=== PATIENT | male | born 1980 | race Caucasian/White ===

== ENCOUNTER 2018-02-12 14:56 | Emergency (ER) | payer SELFPAY ==
[~2018-02-12] VITALS: Ht 172.7 cm; Wt 90.9 kg
[2018-02-12 14:56] VITALS: Ht 172.7 cm; Wt 90.9 kg
[2018-02-12] MEDS ORDERED: PRINIVIL20 MG PO (15:04)
[2018-02-12 15:42] LABS: BASOPHILS 0.5 % (0-2); EOSINOPHILS 1.9 % (0-7); HEMATOCRIT 50.7 % (42.0-54.0); HEMOGLOBIN 17.3 g/dL (13.5-17.5); IMMATURE GRANULOCYTES 0.2 % (0-5); LYMPHOCYTES 34.4 % (15-50); MCHC 34.1 g/dL (31.0-37.0); MCV 90.9 fL (80.0-100.0); MEAN PLATELET VOLUME 9.8 fL (7.4-10.4); MONOCYTES 9.3 % (2-11); NEUTROPHILS 53.7 % (40-80); PLATELET COUNT 314 10x3/uL (130-400); RBC 5.58 10x6/uL (4.20-6.10); RDW 13.4 % (11.5-14.5)
[2018-02-12 15:43] LABS: APPEARANCE CLEAR (CLEAR); BILIRUBIN NEGATIVE (NEGATIVE); COLOR YELLOW (YELLOW); GLUCOSE NEGATIVE (NEGATIVE); KETONE NEGATIVE (NEGATIVE); NITRITE NEGATIVE (NEGATIVE); PROTEIN NEGATIVE (NEGATIVE); SPECIFIC GRAVITY 1.005 (1.005-1.020); UROBILINOGEN NORMAL (NORMAL)
[2018-02-12 15:44] LABS: WHITE CELLS - URINE OCC /hpf (0-5)
[2018-02-12 15:53] LABS: ALBUMIN 3.8 g/dL (3.4-5.0); ALKALINE PHOSPHATASE 51 U/L (46-116); ALT (SGPT) 46 U/L (10-68); BILIRUBIN - TOTAL 0.43 mg/dL (0.2-1.3); CALC OSMOLALITY 278 mosm/kg (275-300); CALCIUM 9.5 mg/dL (8.5-10.1); CARBON DIOXIDE 27.8 mmol/L (21.0-32.0); CHLORIDE - SERUM 105 mmol/L (98-107); CREATININE - SERUM 0.9 mg/dL (0.6-1.3); GLUCOSE 94 mg/dL (74-106); PROTEIN - SERUM 7.4 g/dL (6.4-8.2); SODIUM 141 mmol/L (136-145); UREA NITROGEN 6 mg/dL (7-18); eGFR NON AFRICAN AMERICAN > 90 mL/min (90-120)
[2018-02-12 15:56] LABS: TROPONIN-I 0.034 ng/mL (0.000-0.060)
[2018-02-12 16:05] LABS: CKMB 1.4 U/L (0.0-3.6); CREATINE KINASE 119 UL (21-232); TROPONIN-I 0.034 ng/mL (0.000-0.060)
[2018-02-12] MEDS ORDERED: BACLOFEN20 M1 PO (20:08)
[2018-02-12 21:04] VITALS: BP 119/74
== END 2018-02-12 21:05 ==
LOC: D.ER 14:56
PROVIDERS: Emergency Medicine
DX: M25.512 Pain in left shoulder (principal); W06.XXXA Fall from bed, initial encounter; Y93.89 Activity, other specified; Y92.143 Cell of prison as the place of occurrence of the external cause

== ENCOUNTER 2019-04-28 11:12 | Observation (INO) | payer MEDICAID ==
[~2019-04-28] VITALS: Ht 172.7 cm; Wt 88.6 kg
[~2019-04-28 11:12] MED LIST: BACLOFEN20 M1 PO; PRINIVIL20 MG PO
[2019-04-28 11:47] LABS: BASOPHILS 0.5 % (0-2); EOSINOPHILS 0.8 % (0-7); HEMATOCRIT 43.8 % (42.0-54.0); HEMOGLOBIN 15.8 g/dL (13.5-17.5); IMMATURE GRANULOCYTES 0.4 % (0-5); LYMPHOCYTES 19.6 % (15-50); MCH 32.2 pg (26.0-34.0); MCHC 36.1 g/dL (31.0-37.0); MCV 89.2 fL (80.0-100.0); MEAN PLATELET VOLUME 9.7 fL (7.4-10.4); MONOCYTES 9.4 % (2-11); NEUTROPHILS 69.3 % (40-80); RBC 4.91 10x6/uL (4.20-6.10); RDW 13.3 % (11.5-14.5); WBC 8.5 10x3/uL (4.8-10.8)
[2019-04-28 11:54] LABS: PLATELET COUNT 237 10x3/uL (130-400)
[2019-04-28 11:57] LABS: APTT 30.8 SECONDS (22.8-39.4); INR 1.17 (0.85-1.17); PROTIME 14.4 SECONDS (11.6-15.0)
[2019-04-28 12:01] LABS: ALBUMIN 3.1 g/dL (3.4-5.0); ALKALINE PHOSPHATASE 51 U/L (46-116); ALT (SGPT) 161 U/L (10-68); BILIRUBIN - TOTAL 0.41 mg/dL (0.2-1.3); CALC OSMOLALITY 272 mosm/kg (275-300); CALCIUM 7.9 mg/dL (8.5-10.1); CARBON DIOXIDE 25.8 mmol/L (21.0-32.0); CHLORIDE - SERUM 106 mmol/L (98-107); GLUCOSE 90 mg/dL (74-106); PROTEIN - SERUM 6.5 g/dL (6.4-8.2); SODIUM 137 mmol/L (136-145); UREA NITROGEN 11 mg/dL (7-18); eGFR NON AFRICAN AMERICAN 88 mL/min (90-120)
[2019-04-28 12:12] LABS: CKMB 2.6 U/L (0.0-3.6); CREATINE KINASE 246 UL (21-232); MAGNESIUM - SERUM 1.8 mg/dL (1.8-2.4); TROPONIN-I 0.027 ng/mL (0.000-0.060)
[2019-04-28 12:40] LABS: CKMB 2.1 U/L (0.0-3.6); CREATINE KINASE 249 UL (21-232); TROPONIN-I 0.036 ng/mL (0.000-0.060)
--- NOTE | 2019-04-28 13:01 | NUR ---
REPOTR TO HERNANDEZ VASQUES. PATIENT TO BE ADMITTED TO ROOM 2119. WILL CALL WHEN READY FOR PATIENT
--- NOTE | 2019-04-28 14:15 | NUR ---
RECEIVED PT VIA W/C FROM ER AAOX4 RESP UNLABORED SKIN W/D COLOR WNL DENIES ANY CHEST PAIN AT THIS TIME TELEMETRY SINUS RATE 60 WILL CONTINUE TO MONITOR
--- NOTE | 2019-04-28 14:31 | HP ---
PATIENT: JUAN AVILES MEDICAL RECORD: [id number] ACCOUNT: [id number] LOCATION:[address]19 : 78 ADMISSION DATE: 04/28/19 PCP: No PCP HISTORY AND PHYSICAL EXAMINATION DIAGNOSES: 1. Angina. 2. Coronary artery disease. 3. Previous myocardial infarction. 4. Hypertension. 5. Hyperlipidemia and smoking history. 6. Family history of coronary artery disease. HISTORY OF PRESENT ILLNESS: Mr. Aviles presents with chest pain. He is young at 39 years old, but he does have a cardiac history. He was told at [facility] last February that he had a myocardial infarction. He did not undergo cardiac catheterization or stenting at that time. He was treated with lisinopril. He as well has hyperlipidemia. He was previously on a cholesterol medication, he is no longer on this. He does have a smoking history, continues to smoke and a family history of coronary artery disease. He has been having episodes of chest pain and chest pressure. His EKG is with no acute ST-T abnormalities. OVERALL IMPRESSION: Chest discomfort, questionable myocardial infarction in the past with no intervention. We will risk stratify with stress testing Cardiolite imaging. Further care depends upon the findings of the stress test. TRANSINT:[id number] Voice Confirmation ID: [id number] DOCUMENT ID: [id number] GENARO SCHULZ MD at 1431 CC: [id number] DICTATION DATE: 04/28/19 1154 LION TAMER: 04/28/19 1200 ADM IN [id number] [place] [address]
[2019-04-28 15:56] VITALS: BP 125/72; Ht 172.7 cm; Wt 88.6 kg
--- NOTE | 2019-04-28 18:33 | NUR ---
REVIEWED DISCHARGE INSTRUCTIONS WITH PT STATES UNDERSTANDING COPY GIVEN DCD SALINE LOCK TO LT HAND WITH IV CATHETER INTACT SITE FREE OF REDNESS OR EDEMA PT DISCHARGED HOME IN STABLE CONDITION LEFT VIA W/C WITH ALL PERSONAL BELONGINGS
--- NOTE | 2019-04-29 07:28 | MORECARE ---
CASE MANAGEMENT DISCHARGE SUMMARY PATIENT: JUAN PIERCE UNIT: [id number] ADM DATE: 04/28/19 AGE: 39 : 78 SEX: M ROOM/BED: D.2119 AUTHOR: ROSALVA GARG PHYSICIAN: REFERRING PHYSICIAN: GENARO SCHULZ MD DATE OF SERVICE: 04/29/19 Discharge Plan Patient Name: JUAN PIERCE [facility] [facility] 1980 Planned Disposition: Home Anticipated Discharge Date: 04/28/19 Discharge Date: 04/28/2019 Expected LOS: 1 Initial Reviewer: [email or web address] Initial Review Date: 04/29/2019 Generated: 04/29/19 8:28 am Patient Name: JUAN PIERCE Page [id number] at 0728 All edits/amendments must be made on the electronic document DICTATION DATE: 04/29/19726 REGIONAL FACILITIES MANAGER: SAMEER 04/29/19726 RPT#: [id number] DC DATE:04/28/19 STATUS: DIS IN [facility] [address] [place] [address] END OF REPORT
--- NOTE | 2019-04-29 15:34 | DS ---
PATIENT:JUAN AVILES :78 MEDICAL RECORD: [id number] DISCHARGE SUMMARY ADMISSION DATE: 04/28/19 DISCHARGE DATE: 04/28/19 DISCHARGE DIAGNOSES: 1. Chest pain. 2. Normal nuclear stress test. HOSPITAL COURSE: Mr. Aviles presents with chest pain. He has been told in the past that he had a heart attack; however, nuclear stress testing was totally normal. No perfusion defects. No previous heart attacks. No ongoing ischemic burden. Chest pain is noncardiac in etiology. No further cardiac workup or Cardiology followup is needed. TRANSINT:[id number] Voice Confirmation ID: [id number] DOCUMENT ID: [id number] GENARO SCHULZ MD at 1534 CC: [id number] DICTATION DATE: 04/28/19 1640 RN DERMATOLOGY: 04/29/19 0040 DIS IN 04/28/19 [id number] [place] [address]
--- NOTE | 2019-04-29 15:34 | ST ---
PATIENT:JUAN PIERCE MEDICAL RECORD: [id number] SEX: M LOCATION:D. D.211 ORDER #: ADMISSION DATE: 04/28/19 AGE OF PATIENT: 39 REFERRING PHYSICIAN: INTERPRETING PHYSICIAN: GENARO SCHULZ MD DATE OF SERVICE: 04/28/2019 Nuclear Stress Test INDICATIONS: Chest pain. He was exercised on standard Lexiscan protocol of 28 mCi of sestamibi injected at peak stress, 8 mCi used previously for rest images. FINDINGS: Gated SPECT reveals preserved ejection fraction at 54% with good wall motion and thickening and brightening throughout all segments. SPECT Imaging: Cardiolite was used as myocardial fusion agent. There is homogeneous uptake throughout all segments at rest and stress with no evidence of inducible ischemia or previous infarction. OVERALL IMPRESSION: 1. This is a normal nuclear stress test with no evidence of inducible ischemia or previous infarction. 2. Gated SPECT reveals a preserved ejection fraction at 54%. In this patient with ongoing symptomatology, the current scan does not suggest the presence of hemodynamically significant coronary artery disease. Evaluate noncardiac etiology of chest pain. TRANSINT:[id number] Voice Confirmation ID: [id number] DOCUMENT ID: [id number] GENARO SCHULZ MD at 1534 CC: [id number] DICTATION DATE: 04/28/19 1637 MARKETING AUTOMATION SPECIALIST: 04/29/19 0050 DIS IN 04/28/19 [id number] [place] [address]
== END 2019-04-28 18:33 | disposition home or self-care (01) ==
LOC: D.ER 11:12 → D.M2 12:29 → OBSVTIME 12:33 → D.M2 18:33
PROVIDERS: Family Medicine; ADMIT Internal Medicine Interventional Cardiology; ATTEND Internal Medicine Interventional Cardiology
DX: I25.119 Atherosclerotic heart disease of native coronary artery with unspecified angina pectoris (principal); I10 Essential (primary) hypertension; E78.5 Hyperlipidemia, unspecified; Z82.49 Family history of ischemic heart disease and other diseases of the circulatory system

== ENCOUNTER 2020-06-06 19:21 | Emergency (ER) | payer MEDICAID ==
[~2020-06-06] VITALS: Ht 172.7 cm; Wt 104.5 kg
[2020-06-06 19:25] VITALS: Ht 172.7 cm; Wt 104.5 kg
[2020-06-06 20:06] LABS: BASOPHILS 0.3 % (0-2); EOSINOPHILS 3.2 % (0-7); HEMATOCRIT 49.5 % (42.0-54.0); HEMOGLOBIN 16.8 g/dL (13.5-17.5); IMMATURE GRANULOCYTES 0.5 % (0-5); LYMPHOCYTES 26.9 % (15-50); MCH 31.3 pg (26.0-34.0); MCHC 33.9 g/dL (31.0-37.0); MCV 92.2 fL (80.0-100.0); MEAN PLATELET VOLUME 9.5 fL (7.4-10.4); MONOCYTES 9.8 % (2-11); NEUTROPHILS 59.3 % (40-80); RBC 5.37 10x6/uL (4.20-6.10); RDW 13.3 % (11.5-14.5); WBC 9.8 10x3/uL (4.8-10.8)
[2020-06-06 20:08] LABS: INR 1.08 (0.85-1.17); PLATELET COUNT 309 10x3/uL (130-400); PROTIME 13.9 SECONDS (11.6-15.0)
[2020-06-06 20:18] LABS: CALC OSMOLALITY 279 mosm/kg (275-300); CALCIUM 9.3 mg/dL (8.5-10.1); CARBON DIOXIDE 32.5 mmol/L (21.0-32.0); CHLORIDE - SERUM 102 mmol/L (98-107); CREATININE - SERUM 1.2 mg/dL (0.6-1.3); GLUCOSE 109 mg/dL (74-106); POTASSIUM - SERUM 3.9 mmol/L (3.5-5.1); SODIUM 140 mmol/L (136-145); UREA NITROGEN 12 mg/dL (7-18); eGFR NON AFRICAN AMERICAN 71 mL/min (90-120)
[2020-06-06 20:23] LABS: ALBUMIN 3.3 g/dL (3.4-5.0); ALKALINE PHOSPHATASE 59 U/L (30-120); ALT (SGPT) 84 U/L (10-68); BILIRUBIN - TOTAL 0.36 mg/dL (0.2-1.3); MAGNESIUM - SERUM 2.2 mg/dL (1.8-2.4); PROTEIN - SERUM 7.8 g/dL (6.4-8.2)
[2020-06-06 20:24] LABS: TROPONIN-I < 0.017 ng/mL (0.000-0.060)
[2020-06-06 21:13] VITALS: BP 140/70
== END 2020-06-06 21:12 | disposition home or self-care (01) ==
LOC: D.ER 19:21
PROVIDERS: Family Medicine
DX: R07.9 Chest pain, unspecified (principal); R79.89 Other specified abnormal findings of blood chemistry; Z86.73 Personal history of transient ischemic attack (TIA), and cerebral infarction without residual deficits; I10 Essential (primary) hypertension; I25.2 Old myocardial infarction; Z72.0 Tobacco use